=== PATIENT | female | born 1945 | race Caucasian/White ===

== ENCOUNTER 2019-01-07 16:01 | Outpatient (REF) | payer MEDICARE, OTHER, SELFPAY ==
[2019-01-07 20:33] LABS: Anion Gap 10.2 mmol/L (3-11); BUN 16 mg/dL (7-18); CO2 27.8 mmol/L (21.0-32.0); CREATININE 0.81 mg/dL (0.55-1.02); Calcium 8.8 mg/dL (8.5-10.1); Chloride 103 mmol/L (98-107); Glucose 116 mg/dL (70-100); PHOSPHORUS 4.1 mg/dL (2.6-4.7); Potassium 4.5 mmol/L (3.5-5.1); Sodium 141 mmol/L (136-145)
== END 2019-01-07 16:21 ==
LOC: NCHCN 16:01
PROVIDERS: PCP Family Medicine; Visit Provider Family Medicine
DX: C23 Malignant neoplasm of gallbladder (principal); R21 Rash and other nonspecific skin eruption
CPT/HCPCS: 80048; 87077; 84100; 87070; 87186; 87205

== ENCOUNTER 2019-05-17 14:34 | Outpatient (REF) | payer MEDICARE, OTHER, SELFPAY ==
[2019-05-17 21:57] LABS: TSH (W/Ref FT4) 0.17 uIU/mL (0.36-3.74)
[2019-05-17 22:24] LABS: FREE T4 1.46 ng/dL (0.76-1.46)
== END 2019-05-17 14:54 ==
LOC: NCHCN 14:34
PROVIDERS: PCP Family Medicine; Visit Provider Family Medicine
DX: E03.9 Hypothyroidism, unspecified (principal)
CPT/HCPCS: 84439; 84443

== ENCOUNTER 2020-06-27 20:09 | Outpatient (REF) | payer MEDICARE, OTHER, SELFPAY ==
[2020-06-27 22:14] LABS: Anion Gap 6.1 mmol/L (3-11); BUN 37 mg/dL (7-18); CO2 32.9 mmol/L (21.0-32.0); CREATININE 1.59 mg/dL (0.55-1.02); Calcium 9.1 mg/dL (8.5-10.1); Chloride 103 mmol/L (98-107); Estimated GFR 31.74 (mL/min/1.73m2); Glucose 137 mg/dL (74-106); Potassium 4.2 mmol/L (3.5-5.1); Sodium 142 mmol/L (136-145)
== END 2020-06-27 20:29 ==
LOC: NCHCN 20:09
PROVIDERS: PCP Family Medicine; Visit Provider Family Medicine
DX: I27.20 Pulmonary hypertension, unspecified (principal)
CPT/HCPCS: 80048

== ENCOUNTER 2020-07-12 12:53 | Outpatient (REF) | payer MEDICARE, OTHER, SELFPAY ==
[2020-07-12 21:19] LABS: Anion Gap 9.6 mmol/L (3-11); BUN 33 mg/dL (7-18); CO2 25.4 mmol/L (21.0-32.0); CREATININE 1.53 mg/dL (0.55-1.02); Chloride 105 mmol/L (98-107); Estimated GFR 33.09 (mL/min/1.73m2); Glucose 138 mg/dL (74-106); Potassium 4.2 mmol/L (3.5-5.1); Sodium 140 mmol/L (136-145)
== END 2020-07-12 13:13 ==
LOC: NCHCN 12:53
PROVIDERS: PCP Family Medicine; Visit Provider Family Medicine
DX: R94.4 Abnormal results of kidney function studies (principal); I10 Essential (primary) hypertension
CPT/HCPCS: 80048

== ENCOUNTER 2020-10-26 21:06 | Outpatient (REF) | payer OTHER, SELFPAY ==
[2020-10-29 16:23] LABS: COVID-19 RT-PCR UVMMC Result Negative (Negative)
== END 2020-10-26 21:07 | disposition home or self-care (01) ==
LOC: NCHCN 21:06
PROVIDERS: PCP Family Medicine; Visit Provider Family Medicine
DX: Z20.822 Contact with and (suspected) exposure to COVID-19 (principal)
CPT/HCPCS: U0003

== ENCOUNTER 2021-04-29 14:08 | Outpatient (REF) | payer OTHER, SELFPAY ==
[2021-04-29 21:44] LABS: Abs Immature Grans 0.09 10^3/uL (0.0-0.06); Absolute Basophil Count 0.04 10^3/uL (0.0-0.2); Absolute Eosinophil Count 0.09 10^3/uL (0.0-0.7); Absolute Monocyte Count 0.58 10^3/uL (0.1-0.8); Absolute Neutrophil Count 2.57 10^3/uL (1.2-6.7); Basophils % 0.9; Eosinophils % 2.1; HCT 27.6 % (36.0-46.0); HGB 8.9 g/dL (11.2-15.7); Immature Grans % 2.1; Lymphocytes % 21.1; MCH 30.6 pg (27.0-33.0); MCHC 32.2 % (32.0-36.0); MCV 94.8 fL (80-95); MPV 10.8 fL (8.0-11.0); Monocytes % 13.6; Neutrophils % 60.2; Nucleated RBC 0 %; Platelet Count 197 10^3/uL (130-400); RBC 2.91 10^6/uL (3.93-5.22); RDW 15.4 % (11.7-14.6); RDW-SD 52.9 fL; WBC 4.27 10^3/uL (4.4-10.8)
== END 2021-04-29 14:09 | disposition home or self-care (01) ==
LOC: NCHCN 14:08
PROVIDERS: PCP Family Medicine; Visit Provider Family Medicine
DX: D70.9 Neutropenia, unspecified (principal)
CPT/HCPCS: 85025

== ENCOUNTER 2022-01-06 10:17 | Outpatient (REF) | payer MEDICARE, SELFPAY ==
[2022-01-06 17:01] LABS: TSH 0.61 uIU/mL (0.36-3.74)
== END 2022-01-06 10:18 | disposition home or self-care (01) ==
LOC: NCHCN 10:17
PROVIDERS: PCP Family Medicine; Visit Provider Family Medicine
DX: E03.9 Hypothyroidism, unspecified (principal)
CPT/HCPCS: 84443